=== PATIENT | male | born 1945 | race Caucasian/White ===

== ENCOUNTER 2018-09-09 15:53 | Outpatient (REF) | payer MEDICARE, SELFPAY ==
[2018-09-09 22:31] LABS: Anion Gap 6.8 mmol/L (3-11); BUN 14 mg/dL (7-18); CO2 29.2 mmol/L (21.0-32.0); CREATININE 0.77 mg/dL (0.70-1.30); Calcium 8.5 mg/dL (8.5-10.1); Calculated LDL 142; Chloride 105 mmol/L (98-107); Cholesterol 237 mg/dL (50-200); Glucose 99 mg/dL (70-100); HDL Cholesterol 72 mg/dL (40-60); Sodium 141 mmol/L (136-145); TSH (W/Ref FT4) 2.14 uIU/mL (0.358-3.74); Triglyceride 115 mg/dL (30-150)
== END 2018-09-09 16:13 ==
LOC: NCHCN 15:53
PROVIDERS: PCP Family Medicine; Visit Provider Family Medicine
DX: E78.5 Hyperlipidemia, unspecified (principal); R63.4 Abnormal weight loss
CPT/HCPCS: 80048; 80061; 83721; 84443

== ENCOUNTER 2021-02-27 17:04 | Outpatient (REF) | payer MEDICARE, SELFPAY ==
[2021-02-27 15:13] LABS: ALT 31 U/L (16-63); AST 22 U/L (15-37); Albumin 3.5 g/dL (3.4-5.0); Alkaline Phosphatase 67 U/L (46-116); Anion Gap 8.7 mmol/L (3-11); BUN 20 mg/dL (7-18); Bilirubin, Total 0.7 mg/dL (0.2-1.0); CO2 27.3 mmol/L (21.0-32.0); CREATININE 0.9 mg/dL (0.70-1.30); Calcium 8.6 mg/dL (8.5-10.1); Chloride 104 mmol/L (98-107); Glucose 152 mg/dL (74-106); Potassium 4.1 mmol/L (3.5-5.1); Sodium 140 mmol/L (136-145); Total Protein 6.6 g/dL (6.4-8.2)
== END 2021-02-27 17:05 | disposition home or self-care (01) ==
LOC: NCHCN 17:04
PROVIDERS: PCP Family Medicine; Visit Provider Family Medicine
DX: Z00.00 Encounter for general adult medical examination without abnormal findings (principal); Z72.89 Other problems related to lifestyle
CPT/HCPCS: 80053

== ENCOUNTER 2022-06-07 19:52 | Outpatient (REF) | payer MEDICARE, SELFPAY ==
[2022-06-07 17:04] LABS: ALT 30 U/L (16-63); AST 31 U/L (15-37); Alkaline Phosphatase 69 U/L (46-116); Anion Gap 5.8 mmol/L (3-11); BUN 17 mg/dL (7-18); Bilirubin, Total 0.7 mg/dL (0.2-1.0); CO2 32.2 mmol/L (21.0-32.0); CREATININE 0.9 mg/dL (0.70-1.30); Calcium 9.3 mg/dL (8.5-10.1); Calculated LDL 163 mg/dL (<100); Chloride 104 mmol/L (98-107); Cholesterol 268 mg/dL (<200); Estimated GFR 89.07 (mL/min/1.73m2); Glucose 106 mg/dL (74-106); HDL Cholesterol 95 mg/dL (40-60); Potassium 4.1 mmol/L (3.5-5.1); Sodium 142 mmol/L (136-145); Total Protein 7.5 g/dL (6.4-8.2); Triglyceride 50 mg/dL (<150)
== END 2022-06-07 19:53 | disposition home or self-care (01) ==
LOC: NCHCN 19:52
PROVIDERS: PCP Family Medicine; Visit Provider Family Medicine
DX: E78.5 Hyperlipidemia, unspecified (principal); F10.10 Alcohol abuse, uncomplicated
CPT/HCPCS: 80053; 80061

== ENCOUNTER 2022-09-25 09:15 | Outpatient (REF) | payer MEDICARE, SELFPAY ==
[2022-09-25 15:33] LABS: ALT 35 U/L (16-63); AST 32 U/L (15-37); Albumin 3.8 g/dL (3.4-5.0); Alkaline Phosphatase 70 U/L (46-116); Anion Gap 7.7 mmol/L (3-11); BUN 22 mg/dL (7-18); Bilirubin, Total 0.8 mg/dL (0.2-1.0); CO2 29.3 mmol/L (21.0-32.0); CREATININE 0.9 mg/dL (0.70-1.30); Calcium 8.8 mg/dL (8.5-10.1); Calculated LDL 104 mg/dL (<100); Chloride 105 mmol/L (98-107); Cholesterol 195 mg/dL (<200); Estimated GFR 89.07 (mL/min/1.73m2); Glucose 103 mg/dL (74-106); HDL Cholesterol 83 mg/dL (40-60); Potassium 4.3 mmol/L (3.5-5.1); Sodium 142 mmol/L (136-145); Total Protein 7.3 g/dL (6.4-8.2); Triglyceride 43 mg/dL (<150)
== END 2022-09-25 09:16 | disposition home or self-care (01) ==
LOC: NCHCN 09:15
PROVIDERS: PCP Family Medicine; Visit Provider Family Medicine
DX: E78.5 Hyperlipidemia, unspecified (principal); F10.10 Alcohol abuse, uncomplicated; Z79.899 Other long term (current) drug therapy
CPT/HCPCS: 80053; 80061

== ENCOUNTER 2023-10-09 15:05 | Outpatient (REF) | payer MEDICARE, SELFPAY ==
[2023-10-09 17:59] LABS: ALT 30 U/L (16-63); AST 27 U/L (15-37); Albumin 3.6 g/dL (3.4-5.0); Alkaline Phosphatase 72 U/L (46-116); BUN 17 mg/dL (7-18); Bilirubin, Total 0.79 mg/dL (0.2-1.0); CREATININE 1.1 mg/dL (0.70-1.30); Calcium 8.8 mg/dL (8.5-10.1); Calculated LDL 77 mg/dL (<100); Chloride 105 mmol/L (98-107); Cholesterol 172 mg/dL (<200); Estimated GFR 69.14 (mL/min/1.73m2); Glucose 202 mg/dL (74-106); HDL Cholesterol 82 mg/dL (40-60); Potassium 4.4 mmol/L (3.5-5.1); Sodium 142 mmol/L (136-145); TSH (W/Ref FT4) 1.42 uIU/mL (0.36-3.74); Triglyceride 65 mg/dL (<150); Vitamin D 25 Total 22.5 ng/mL (30-100)
[2023-10-13 10:49] LABS: Lyme Ab w Rflx to Lyme Confirm Negative (Negative)
== END 2023-10-09 15:06 | disposition home or self-care (01) ==
LOC: NCHCN 15:05
PROVIDERS: PCP Family Medicine; Visit Provider Family Medicine
DX: E78.5 Hyperlipidemia, unspecified (principal); M79.10 Myalgia, unspecified site; M25.50 Pain in unspecified joint
CPT/HCPCS: 80053; 80061; 82306; 84443; 86618

== ENCOUNTER 2024-05-04 13:13 | Outpatient (REF) | payer MEDICARE, SELFPAY ==
[2024-05-04 14:36] LABS: ALT 31 U/L (16-63); AST 31 U/L (15-37); Albumin 3.7 g/dL (3.4-5.0); Alkaline Phosphatase 81 U/L (46-116); Anion Gap 7.8 mmol/L (3-11); BUN 17 mg/dL (7-18); Bilirubin, Total 1.05 mg/dL (0.2-1.0); CO2 28.2 mmol/L (21.0-32.0); CREATININE 1.1 mg/dL (0.70-1.30); Calcium 9.2 mg/dL (8.5-10.1); Calculated LDL 76 mg/dL (<100); Chloride 106 mmol/L (98-107); Cholesterol 184 mg/dL (<200); Estimated GFR 69.14 (mL/min/1.73m2); Glucose 97 mg/dL (74-106); HDL Cholesterol 97 mg/dL (40-60); Potassium 4.2 mmol/L (3.5-5.1); Sodium 142 mmol/L (136-145); Total Protein 7.3 g/dL (6.4-8.2); Triglyceride 57 mg/dL (<150)
== END 2024-05-04 13:14 | disposition home or self-care (01) ==
LOC: NCHCN 13:13
PROVIDERS: PCP Family Medicine; Visit Provider Family Medicine
DX: E78.5 Hyperlipidemia, unspecified (principal)
CPT/HCPCS: 80053; 80061

== ENCOUNTER 2024-10-12 13:07 | Outpatient (REF) | payer MEDICARE, SELFPAY ==
[2024-10-12 16:04] LABS: ALT 30 U/L (16-63); AST 27 U/L (15-37); Albumin 3.8 g/dL (3.4-5.0); Alkaline Phosphatase 66 U/L (46-116); Anion Gap 5.9 mmol/L (3-11); BUN 18 mg/dL (7-18); Bilirubin, Total 0.9 mg/dL (0.2-1.0); CO2 30.1 mmol/L (21.0-32.0); Calcium 9.0 mg/dL (8.5-10.1); Chloride 104 mmol/L (98-107); Estimated GFR 77.04 (mL/min/1.73m2); Glucose 113 mg/dL (74-106); Potassium 4.3 mmol/L (3.5-5.1); Sodium 140 mmol/L (136-145); TSH (W/Ref FT4) 1.74 uIU/mL (0.36-3.74); Total Protein 7.0 g/dL (6.4-8.2); Vitamin B12 243 pg/mL (193-986)
== END 2024-10-12 13:08 | disposition home or self-care (01) ==
LOC: NCHCN 13:07
PROVIDERS: PCP Family Medicine; Visit Provider Family Medicine
DX: G60.9 Hereditary and idiopathic neuropathy, unspecified (principal); E78.49 Other hyperlipidemia
CPT/HCPCS: 80053; 82607; 84443